=== PATIENT | male | born 1965 | race Caucasian/White ===

== ENCOUNTER 2017-03-02 16:32 | Inpatient (IN) | payer BC ==
[~2017-03-02] VITALS: Ht 185.4 cm; Wt 87.9 kg
--- NOTE | ~2017-03-02 | DS ---
PATIENT'S NAME: SERA MORSE [facility] AGE: 51 Y [address] ROOM: [address] [place], [place] [address] LOCATION: TU ADMIT DATE: 03/02/2017 Discharge Summary DISCHARGE DATE: 03/12/2017 FAMILY PHYSICIAN: Fawn Ca MD ATTENDING PHYSICIAN: Aman Pa DISCHARGE DIAGNOSES: 1. 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 2. Benign prostatic hyperplasia. 3. Seasonal allergies. HOSPITAL COURSE: Please refer to admitting history and physical as dictated by Dr. Pa. Briefly, the patient was admitted to [facility] with left extremity weakness and vertigo. His NIH score was 4 upon admit. He was outside of the tPA treatment window. MRI of the brain showed a large acute infarct without hemorrhage in the left PICA distribution involving the posterior inferior cerebellum. The patient was placed on the stroke order sets. He was given Lipitor 80 mg p.o. daily. He was started on aspirin 81 mg p.o. daily. Teleneurology as well as Dr. Snow were consulted. He was allowed for permissive hypertension. The patient did have significant headache with photophobia and phonophobia. Physical therapy, occupational therapy and speech therapy all followed the patient for restorative cares. The patient was able to swallow regular textures and thin liquids. Dr. Arnold did see the patient for GIRP evaluation. He felt as though he was a good candidate for GIRP. Dr. Snow did recommend a time period of bedrest prior to the patient being up and out of bed. He was transferred out of the ICU on 03/04/2017. He was monitored with serial CAT scans of his head to monitor the ischemic infarct. Tramadol was used for headache. The patient continued to make gradual improvement. He did have noted constipation, Colace and MiraLax were initiated. He did have a bowel movement prior to discharge. Lovenox 40 mg subcu was used for DVT prophylaxis. On 03/12/2017, the patient's vital signs were stable. His left-sided weakness had improved. His headache had improved. Followup CAT scans revealed evolving ischemic infarct with no hemorrhagic transformation. It was felt as though he was stable to transfer to [facility] for further restorative cares. LABORATORY DATA: Sodium 140, potassium 3.9, chloride 108, glucose 107, BUN 18, creatinine 1.0, albumin 4.2, alkaline phosphatase 77, AST 21, ALT 23, phosphorus 2.0, GFR remained greater than 60, mag 2.0, total cholesterol 195, triglycerides 105, HDL 52, LDL 122. Alcohol less than 0.010. CPK 117, CK-MB 0.7. Troponin less than 0.040. WBC 8.1, hematocrit 43.7, hemoglobin 15.3, platelets 294. UA negative except for ketones 150. Urine drug screen negative. RADIOLOGY REPORTS: Chest x-ray, normal chest. CT of the head done on PATIENT'S NAME: SERA MORSE [facility] AGE: 51 Y [address] ROOM: [place] [address] LOCATION: [facility] ADMIT DATE: 03/02/2017 Discharge Summary DISCHARGE DATE: 03/12/2017 FAMILY PHYSICIAN: Fawn Ca MD ATTENDING PHYSICIAN: Aman Pa 03/02/[address] of the head. CTA of the head and neck shows a normal head CTA of neck 50%, smooth narrowing at the base of the right internal carotid, left bifurcation is normal. MRI of the brain shows a large acute infarct without hemorrhage in the left PICA distribution involving the posterior inferior cerebellum. CT of the head done on 03/03/2017 shows evolving ischemic infarct of the left cerebellum hemisphere with no hemorrhagic transformation. CT of the head done on 03/05/2017 shows evolving ischemic infarct at the left cerebellum with no hemorrhagic transformation. DISCHARGE INSTRUCTIONS: The patient will be discharged to [facility] with the [facility] physician to follow. Code status full. Diet regular. Weightbearing as tolerated with assistance. Fall precautions. PT, OT, ST to evaluate and treat as indicated. Oxygen as needed to keep saturations greater than 90%. Rehab potential good. Discharge potential is good. DISCHARGE MEDICATIONS: 1. Aspirin 81 mg p.o. daily. 2. Lipitor 80 mg p.o. daily. 3. Colace 100 mg p.o. twice a day. 4. Hydrocortisone cream topically applied to the left axillary region as directed. 5. Lactinex 1 tablet p.o. daily. 6. Claritin 10 mg p.o. daily. 7. Protonix 40 mg p.o. daily. 8. MiraLax 17 g p.o. twice daily. 9. Flomax 0.4 mg p.o. daily. 10. Tylenol 650 mg p.o. every 6 hours as needed for pain. 11. Dulcolax suppository 10 mg every day as needed for constipation. 12. Milk of magnesia 30 mL p.o. daily p.r.n. constipation. 13. Antivert 25 mg p.o. every 8 hours as needed for vertigo. 14. Tramadol 50 mg p.o. every 4 hours as needed for pain. 15. Bengay to shoulders bilaterally apply 4 times daily as needed for muscle soreness. 16. Abreva topical apply to affected area 5 times daily. Thank you for allowing us to participate in the care of this patient as he has been hospitalized at [facility]. DARLIN FLORES APRN FOR MD ESAU HO/annamaria PATIENT'S NAME: SERA MORSE [facility] AGE: 51 Y [address] ROOM: [place] [address] LOCATION: [facility] ADMIT DATE: 03/02/2017 Discharge Summary DISCHARGE DATE: 03/12/2017 FAMILY PHYSICIAN: Fawn Ca MD ATTENDING PHYSICIAN: Aman Pa /[id number] d: 03/21/17621 t: 03/31/17 1428, DISCHARGE SUMMARY
--- NOTE | ~2017-03-02 | CON ---
PATIENT'S NAME: SERA MORSE [facility] AGE: 51 Y [address] ROOM: [place] [address] LOCATION: GICU ADMIT DATE: 03/02/2017 Consultation DISCHARGE DATE: FAMILY PHYSICIAN: Fawn Ca MD ATTENDING PHYSICIAN: Aman PA REFERRING PHYSICIAN: Bonnie Raymond MD A consult for Dr. Pa. HISTORY OF PRESENT ILLNESS: This 51-year-old gentleman is referred for rehab evaluation. He was admitted on 03/02/2017 with left-sided weakness, vertigo, and felt dizzy while coming back from a fishing trip to [place]. He also noticed that he had left-sided weakness with facial droop and reported intermittently double vision. PAST MEDICAL HISTORY: He has history of increased blood pressure, reflux esophagitis, and benign prostatic hypertrophy. PHYSICAL EXAMINATION: GENERAL: He is, at the present time, alert and oriented x3. VITAL SIGNS: Blood pressure 113/79, temperature 97.9, pulse 76, and respiration rate 15. He is 6 feet 1 inch tall and weighs 93.0 kg. NEUROLOGIC: At this time, he is able to talk, comprehend, and express without difficulty. Cranial nerves 2 through 12 are within normal limits except for probably having some dizziness. He has also slight left facial droop. Tongue and soft palate are moving symmetrical. Voice is clear and not wet. He is able to comprehend and express up to the point without difficulty. His memory is good. He is weaker on the left side. Left upper extremity 3+ to 4- muscle strength, and left lower extremity about 4-. He has good bowel and bladder control so far. MEDICATIONS: His medications are as follows: 1. Morphine sulfate. 2. Flomax. 3. Lactinex. 4. Claritin. 5. NaCl 0.9%. 6. Tylenol. 7. Trandate or labetalol. 8. Zofran. 9. Antivert. PATIENT'S NAME: SERA MORSE [facility] AGE: 51 Y [address] ROOM: [place] [address] LOCATION: GICU ADMIT DATE: 03/02/2017 Consultation DISCHARGE DATE: FAMILY PHYSICIAN: Fawn Ca MD ATTENDING PHYSICIAN: Aman PA 10. Valium. 11. Lipitor. 12. Aspirin. ASSESSMENT AND PLAN: We will start him on PT, OT, and speech, please see the orders. At the present time, I feel that this gentleman is a good candidate for intensive rehabilitation. When he comes out of intensive unit, I will take him for about 3 to 4 weeks of intensive rehab, aiming to discharge home at modified independence. All the above was explained to him. He verbalized understanding, so did his , and agreement with plan of care. GÉNESIS OBRIEN MD WMS/modl /[id number] d: 03/03/17 1343 t: 03/04/17 0739, CONSULTATION REPORT
--- NOTE | ~2017-03-02 | CON ---
PATIENT'S NAME: SERA MORSE [facility] AGE: 51 Y [address] ROOM: [address] [place] [id number] LOCATION: [facility] ADMIT DATE: 03/02/2017 Consultation DISCHARGE DATE: FAMILY PHYSICIAN: Fawn Ca MD ATTENDING PHYSICIAN: Aman CRAWFORD DATE OF CONSULTATION: 03/03/2017 REFERRING PHYSICIAN: Bonnie Raymond MD SEEN AT: The patient was seen on neurologic consultation on 03/03/2017 at 09:00 p.m. HISTORY OF PRESENT ILLNESS: Mr. Morse is a 51-year-old male patient who states that in general he is healthy and has never had a stroke before. He denies coronary artery disease, but has had a workup in the past for chest pain. The patient presented to our hospital on 03/02/2017, but was out of the window to receive tPA. He clearly presented with stroke-like symptoms associated with left facial numbness, discoordination of his left arm and perhaps some subtle weakness of the left arm though that is unclear, some gait imbalance, general lightheadedness, dizziness and nauseousness. Initially on our CAT scan here at the hospital upon admission, he did not have any evidence of an evolving stroke. However, he continued to have the stroke-like symptoms. An MRI and follow up CAT scans now show an evolving stroke into the left inferior portion of the cerebellar hemisphere. Basically during the course of the day, the patient has still had some symptoms suggestive of the evolving stroke with numbness of the left face, but without any dysarthric speech, continued headache, fatigue and discoordination of the left arm consistent more with dysmetria. In an effort to ambulate the patient today, he experienced dizziness and lightheadedness to the point where he had to sit down back in the bed and even a change in position from sitting up to standing up did induce more of a headache and extreme lightheadedness. Currently, the patient is a bit somnolent, but answers all questions appropriately. Complaining about some fullness and a headache and a subtle pain into the base of the skull. Currently, he has been placed on aspirin 81 mg daily post stroke as well as Lipitor 80 mg daily. Today, he had an echocardiogram which is pending on the results of this test. 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 He did come back from a fishing trip in [place] about a day prior. Upon prior medical history, a history of fairly benign high blood pressure and history of benign prostatic hypertrophy. Denies any history of stroke, heart attack, migraine headaches. He does have a history of some mild lightheadedness with head change position. PATIENT'S NAME: SERA MORSE [facility] AGE: 51 Y [address] ROOM: [address] [place] [id number] LOCATION: [facility] ADMIT DATE: 03/02/2017 Consultation DISCHARGE DATE: FAMILY PHYSICIAN: Fawn Ca MD ATTENDING PHYSICIAN: Aman CRAWFORD CURRENT MEDICATIONS IN HOSPITAL: Include: 1. Tamsulosin 0.4 mg p.o. daily. 2. Lactobacillus 1 tablet p.o. daily. 3. Loratadine 10 mg p.o. daily. 4. Meclizine 25 mg q.8 hours p.r.n. dizziness. 5. Diazepam 5 mg 3 times a day p.r.n. dizziness. 6. Atorvastatin 80 mg p.o. daily. 7. Aspirin 81 mg p.o. daily. 8. Both aspirin and Lipitor, please note have been started here in this hospital. SOCIAL HISTORY: He is . No history of smoking or alcohol dependence. History is noncontributory. REVIEW OF SYSTEMS: The patient neurologically presents with left arm discoordination, some numbness into his left hemibody, headache, neck pain as well as numbness of his left face. He does not have any dysarthric speech. He does not have any problems with word finding. He appears to be uncomfortable, averse to light. He complains about some mild diplopia on left gaze. GI history of some mild gastroesophageal reflux. On genitourinary has a history of benign prostatic hypertrophy. The rest of a 10-point review of systems is within normal limits. PHYSICAL EXAMINATION: GENERAL: This is a 51-year-old male patient who looks to be uncomfortable. NEUROLOGIC: He is complaining about a mild bifrontal headache and some left base of the skull head discomfort. He has full range of motion of his neck on flexion and extension. Bringing his head back does induce some mild dizziness. I did not appreciate any facial droop. He has some subjective numbness of his left hemiface, but smile is symmetric. His power in his right upper and lower extremity is normal. His left upper extremity, he does not elevate this arm. It is difficult to say if this is due to weakness as he does have dysmetria on [id number] opposition. His left lower extremity appears to have normal power. There is otherwise normal sensation to light touch and sharp touch. The patient was not ambulated. IMPRESSION: This patient is a young male 51-year-old. His really only risk factor for stroke that we could see is likely some mild hypertension. However, he does not present here with his blood pressure being too high. In fact, his blood pressure is around 110 systolic presently. I would favor keeping the patient on IV fluids for intravascular repletion. We have to be cognizant to the fact PATIENT'S NAME: SERA MORSE [facility] AGE: 51 Y [address] ROOM: [place] [address] LOCATION: [facility] ADMIT DATE: 03/02/2017 Consultation DISCHARGE DATE: FAMILY PHYSICIAN: Fawn Ca MD ATTENDING PHYSICIAN: Aman CRAWFORD that this is a young man with very little atrophy of the brain. Thus, a cerebellar stroke is quite dangerous and can even evolve over the course of the next 48 to 72 hours. Therefore, aggressive physical therapy should be completely avoided. He should slowly regain the ability to do physical therapy easily with time, but we have to be careful just to have the patient sit up at bedside and do some basic occupational therapy at this point in time. Favor essentially bedrest with this patient. Etiology for his stroke is unclear. He does have an occluded pica which is a small branch off the vertebral and even some narrowing of the right pica, but this pica on the right is not completely occluded. It is possibility that in pica strokes, there was an injury into the vertebral artery on the left though it has been read as "normal" on the CT angiogram. I would not necessarily say that the left vertebral would be normal in this case as the patient has some likely extension of his stroke even into the medulla probably from the perfusion off the pica coming out of the left vertebral. I say this because of his symptoms of numbness of his left face would clearly be related to a Wallenberg type of presentation of a small infarct even into the lower medulla. The lower medulla does not have prolongation of diffusion. Certainly, this could even evolve over the course of the next few days. Thus, I stressed again that we have to be careful to avoid any aggressive physical therapy in this patient. Generally, these types of strokes should do well, but often caution is advised as we have to make sure that there is no more advancement of his cerebellar stroke that could cause something of the fourth ventricle. In fact, we should repeat the CAT scan probably within the next 24-48 hours to see how the evolvement of the stroke is taking place. 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 For his treatment for post stroke, we have added Lipitor 80 mg with the hopes that this could stabilize the endothelium as well as the anti-platelet agent aspirin. Continue to follow closely with the hospitalist service on Mr. Morse's progress. MD STEPHEN ALONSO/annamaria /[id number] d: 03/04/170 t: 03/13/17 1304, CONSULTATION REPORT
--- NOTE | ~2017-03-02 | CON ---
PATIENT'S NAME: SERA MORSE [facility] AGE: 51 Y [address] ROOM: [place] [address] LOCATION: [facility] ADMIT DATE: 03/02/2017 Consultation DISCHARGE DATE: FAMILY PHYSICIAN: Fawn Ca MD ATTENDING PHYSICIAN: Aman CRAWFORD CHIEF COMPLAINT: Well stroke. HISTORY OF PRESENT ILLNESS: This is a 51-year-old man, who came into the hospital for acute onset difficulty moving the left arm and balance as well as some nausea and vomiting. The patient's symptoms have been going on since 10 a.m., he was coming back from a fishing trip that this happened and these symptoms seemed to have progressed right before the patient came into the hospital. He started having numbness on the left side of his body. This has not happened before. The symptoms have not improved. He does not have a history of atrial fibrillation and he does not take aspirin. PHYSICAL EXAMINATION: On exam: 1A: Level of consciousness 0. 1B: Month and age 0. 1C: Open eyes, closed, and hands 0. 1. Best gaze 0. 2. Visual fairchild 0. 3. Facial palsy, 0. 5A. Motor left arm 0. 5B. Motor right arm 0. 6A: Motor left leg 0. 6B: Motor right leg 0. 1. Ataxia. 2. Sensory 1. 3. Western Language 0. 4. Dysarthria 0. 5. Extension and attention 0. The patient had an NIH of 3. CT of the head, no acute findings. ASSESSMENT AND PLAN: Stroke. The patient has sensory loss of the left arm and leg and sensory ataxia, most likely has a subcortical stroke in the right hemisphere possibly PATIENT'S NAME: SERA MORSE [facility] AGE: 51 Y [address] ROOM: [place] [address] LOCATION: [facility] ADMIT DATE: 03/02/2017 Consultation DISCHARGE DATE: FAMILY PHYSICIAN: Fawn Ca MD ATTENDING PHYSICIAN: Aman CRAWFORD thalamic stroke. There are no cortical signs in the exam. The patient is not a tPA candidate as he is out of the window. The patient is not a neuro IR candidate because it is out of the window and low in age, minimal symptoms. At this time, we will recommend the following, admit stroke telemetry, head of bed flat, IV fluids, aspirin 325, dysphagia screen, prophylactic telemetry. Consult to inhouse neurologist and then further stroke workup per our inhouse neurologist and Internal Medicine team. Discussed with the ED physician. Please call for questions. MD JIMENEZ/annamaria /[id number] d: t: 03/02/17 2309, CONSULTATION REPORT
--- NOTE | ~2017-03-02 | ECHO ---
Transthoracic Echocardiography Report (TTE) Demographics Patient Name SERA MORSE Date of Study 03/03/2017 Patient Number [id number] Visit Number [id number] Date of 1965 Room Number G6206 Accession Number [id number] Gender Male Age 51 year(s) Referring Roby Billings MD Returns Clerk Deshaun Rajput RVT, Physician RDCS Physician Interpreting Tanya Ramos Lieutenant Fire Fighter Physician MD Supervising Ordering Physician Ember Newton MD/P Nurse Stress Machine Setter Conclusions Contractility Score Summary Normal Left Ventricular contractility was noted. Summary The estimated left ventricular ejection fraction is 60-65% with normal wall thickness and WM. The left ventricle is normal in size . Diastolic assessment reveals normal relaxation. There is no evidence of patent foramen ovale or atrial septal defect by color Doppler. Bubble study was done, there is no evidence for a PFO or ASD. Procedure Type of Study TTE procedure:2D Echocardiogram, Echo with Contrast. Procedure Date Date: 03/03/2017 Start: 11:16 AM Study Location: Inpatient Portable Technical Quality: Good visualization Indications:CVA. Appropriate Use Criteria: 8 Patient Status: Routine Contrast Medium: Bubble Study. Rhythm: NSR HR: 64 bpm BP: 113/79 mmHg M-Mode/2D Measurements LV Diastolic Dimension: 4.96 cm LV Systolic Dimension: 3.56 cm LV Septum Diastolic: 0.94 cm LV PW Diastolic: 0.8 cm AO Root Dimension: 2.7 cm Cardiac Output: 4.3 l/min AV Cusp Separation: 2.4 cm RV Diastolic Dimension: 2.91 cm LA volume: 35 ml LVOT: 2.2 cm RV Base: 3.65 cm LVOT VTI: 17.7 cm RV Mid: 2.59 cm LV Stroke volume: 67.25 ml TAPSE: 2.11 cm TDI-S': 10.2 cm/s Doppler Measurements AV Peak Velocity: 1.14 m/s MV Peak E-Wave: 0.78 m/s AV Peak Gradient: 5.2 mmHg MV Peak A-Wave: 0.51 m/s AV Mean Gradient: 3 mmHg MV E/A Ratio: 1.53 LVOT Peak Velocity: 0.84 m/s MV P1/2t: 67 msec TR Gradient:15.84 mmHg PV Peak Velocity: 0.93 m/s Estimated RAP:5 mmHg PV Peak Gradient: 3.43 mmHg Estimated RVSP: 21 mmHg Estimated PASP: 20.84 mmHg E' Septal Velocity: 0.08 m/s A' Septal Velocity: 0.1 m/s E' Lateral Velocity: 0.13 m/s A' Lateral Velocity: 0.11 m/s Findings Left Ventricle Normal left ventricle size and function. Right Ventricle Normal right ventricle structure and function. Left Atrium Normal left atrial size. There is no evidence of patent foramen ovale or atrial septal defect by color Doppler. Bubble study was done, there is no evidence for a PFO or ASD. Right Atrium Normal right atrial size. IVC measures 1.47 cm with inspiratory collapse. Mitral Valve Normal mitral valve structure and function. Aortic Valve Normal aortic valve structure and function. Tricuspid Valve Normal tricuspid valve structure and function. Trivial tricuspid regurgitation by color Doppler. Pulmonic Valve Normal pulmonic valve structure and function. Trivial pulmonic valve regurgitation by color Doppler. Pericardial Effusion No evidence of pericardial effusion. Miscellaneous Visualized portions of the aortic root and ascending aorta appear normal in size. Pleural Effusion No evidence of pleural effusion. Contractility Score LV regional wall motion:(0-Non visualized 1-Normal 2-Hypokinesis 3-Akinesis 4-Dyskinesis 5-Aneurysm) Signature dtt: Rachel Martínez dtd: 03/03/17 1116 Physician Self Edit
--- NOTE | ~2017-03-02 | ER ---
PATIENT'S NAME: [facility] AGE: 51 Y [address] ROOM: [place] [address] LOCATION: [facility] ADMIT DATE: 03/02/2017 ER/Outpatient Report DISCHARGE DATE: FAMILY PHYSICIAN: Fawn Ca MD ATTENDING PHYSICIAN: Aman PA Time of Arrival: 1627. Time Seen: 1627. IDENTIFICATION: 51-year-old male. CHIEF COMPLAINT: Possible stroke. HISTORY OF PRESENT ILLNESS: The patient is a 51-year-old male, who was returning home from a fishing trip with some friends. Approximately 10:00 a.m. this morning, he developed some dizziness, blurred vision, nausea, vomiting, and double vision. Then approximately 1.5 hours prior to arrival, he was complaining of some numbness in his left arm, left face, felt like he had been to the dentist, difficulty walking, and difficulty controlling his left arm. He said he could not itch his ear. He is a little bit confused at times when I am asking him his history. History was confirmed with the person that was with him as well as his . PAST MEDICAL HISTORY: ALLERGIES: NO KNOWN DRUG ALLERGIES. CURRENT MEDICATIONS: 1. Flexeril 5 mg. 2. Lactobacillus. 3. Ibuprofen. 4. Loratadine 10 mg. 5. Biotin x4. 6. Probiotic. 7. Tamsulosin 0.4 mg daily. 8. Pseudoephedrine p.r.n. 9. Acetic acid ear drops. MEDICAL PROBLEMS: Traumatic brain injury, BPH. PATIENT'S NAME: [facility] AGE: 51 Y [address] ROOM: [place] [address] LOCATION: [facility] ADMIT DATE: 03/02/2017 ER/Outpatient Report DISCHARGE DATE: FAMILY PHYSICIAN: Fawn Ca MD ATTENDING PHYSICIAN: Aman PA PRIOR SURGERIES: Right ankle surgery. SOCIAL HISTORY: The patient is . Lives here in [place]. Tobacco use, denies. Alcohol use, 2-3 drinks per week. Drug use, denies. FAMILY HISTORY: No family history of coronary artery disease or stroke. REVIEW OF SYSTEMS: All systems reviewed and negative other than what is noted in the HPI. PHYSICAL EXAMINATION: VITAL SIGNS: Blood pressure 149/71, pulse 81, respirations 20, temperature 98, and saturations 96%. GENERAL: This is a 51-year-old male, in obvious distress. HEENT: Head: Normocephalic, atraumatic. Ears: TMs translucent to both ears. Eyes: Pupils equal and reactive to light and accommodation. Extraocular movements intact. Nose: Mucosa pink. No lesions. Mouth: No lesions. Pharynx benign. NECK: Supple. No lymphadenopathy. No thyromegaly. No JVD. No carotid bruits. LUNGS: Clear to auscultation. Breath sounds are equal. No rhonchi, wheezes, or rales. HEART: Regular rate and rhythm. No murmur, rub, or gallop. ABDOMEN: Bowel sounds present. Soft, nondistended. No hepatosplenomegaly. No palpable masses. Nontender. SKIN: Dol[place], warm, and dry. No lesions or rashes noted. NEUROLOGIC: The patient is alert and oriented to person, place, and time, but occasionally he wanders off and appears to be confused. Cranial nerves 2 through 12 grossly intact. Motor strength 5/5 right upper extremity, 4/5 left upper extremity. 5/5 both lower extremities. No lower extremity edema. Sensation is diminished to light touch in the left face and the left arm. NIH stroke scale score is 6 at the time of arrival. The patient has significant limb ataxia in the left upper extremity and left lower extremity. LABORATORY DATA: Alcohol level less than 0.010. Cardiac enzymes negative x1. CBC: INR normal. UA 150 mg/dL ketones. The patient's Accu-Chek was 117. Renal panel unremarkable. Head CT negative per Dr. Agrawal, radiologist. CBC is normal. EKG normal sinus rhythm at 88 beats per minute. No change compared to January 2015. Tele neurology consult was obtained. IMPRESSION AND PLAN: PATIENT'S NAME: [facility] AGE: 51 Y [address] ROOM: [id number] [place], [place] [address] LOCATION: [facility] ADMIT DATE: 03/02/2017 ER/Outpatient Report DISCHARGE DATE: FAMILY PHYSICIAN: Fawn Ca MD ATTENDING PHYSICIAN: Aman PA Acute cerebrovascular accident. Negative head CT out of the window for tPA. The patient was given aspirin 81 mg x4. The patient will be admitted per hospitalist. Dr. Pa evaluated the patient in the emergency room. All questions were answered with the patient and his family and 30 minutes of critical care was provided with this patient. MD MARIANELA VIDES/annamaria /[id number] d: 03/03/17 0010 t: 03/06/17 0932, OUTPATIENT REPORT
--- NOTE | ~2017-03-02 | HP ---
PATIENT'S NAME: [facility] AGE: 51 Y [address] ROOM: [place] [address] LOCATION: [facility] ADMIT DATE: 03/02/2017 History & Physical DISCHARGE DATE: FAMILY PHYSICIAN: Fawn Ca MD ATTENDING PHYSICIAN: Aman CRAWFORD DATE OF SERVICE: CHIEF COMPLAINT: Left-sided weakness and vertigo. HISTORY OF PRESENT ILLNESS: The patient is a 51-year-old with no past medical history, who presents here with left extremity weakness and vertigo. The patient went to [facility] for fishing and while returning back to [place], he felt dizzy while driving. 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 On route, he also felt left-sided weakness and dizziness. Also reports that his face now appears left side face. Family thought that he might have migraine. He reports that he could not open his eyes as that created sense of vertigo, which accompanied by nausea and vomiting. Symptoms started around 10:00 a.m. Since these symptoms did not improve, family brought him to our emergency department for further evaluation. On initial evaluation, the patient was noted to have left-sided weakness, truncal instability, and dysmetria of left side. Neuro tele was consulted for possible stroke, however, the patient was outside tPA treatment and tPA was not given. The patient denies chest pain, shortness of breath, fever, abdominal pain, diarrhea, constipation, and fall. The patient also reports of intermittent diplopia. MEDICAL HISTORY: BPH. SURGICAL HISTORY: Cholecystectomy. FAMILY HISTORY: Dad has a history of coronary artery disease. Mother has a history of stroke. SOCIAL HISTORY: The patient works for the . Denies smoking and seldomly drinks. MEDICATIONS: Currently being reconciled. REVIEW OF SYSTEMS: All systems have been reviewed and are negative except for what mentioned in PATIENT'S NAME: [facility] AGE: 51 Y [address] ROOM: [place] [address] LOCATION: [facility] ADMIT DATE: 03/02/2017 History & Physical DISCHARGE DATE: FAMILY PHYSICIAN: Fawn Ca MD ATTENDING PHYSICIAN: Aman CRAWFORD the HPI. PHYSICAL EXAMINATION: VITAL SIGNS: Afebrile, blood pressure 147/102, heart rate 68, respiratory rate 14, saturating 96% on room air. GENERAL APPEARANCE: The patient lying on the bed in no acute distress. HEAD: Normocephalic, atraumatic. EYE: Extraocular muscle intact. EAR: No ear discharge. NOSE: No nasal discharge. MOUTH: Moist oral mucosa. CHEST: Clear to auscultation bilaterally. HEART: Regular rate rhythm. No murmurs or gallops. ABDOMEN: Soft, nontender, and nondistended. Bowel sounds present. SKIN: Warm to touch. GEOLOGICAL AIDE: The patient is alert and oriented x3. Left lower extremity and left upper extremity strength 4/5. Positive dysdiadochokinesia, positive dysmetria on left upper extremity, truncal instability noted. LABORATORY DATA: Troponin less than 0.04. CBC: White blood cell count of 8, hemoglobin of 15, platelets of 294, BUN of 18, creatinine of 1. Sodium of 140, potassium of 3.9, and glucose of 107. PT 25. INR 0.95. CT head shows normal CT scan of the head. EKG; normal sinus rhythm. ASSESSMENT AND PLAN: Cerebrovascular accident: The patient is a 51-year-old gentleman with no significant past medical history, who presents with possible posterior stroke. The patient is presenting with truncal instability, nystagmus with nausea, vomiting, left lower extremity dysmetria, hemiataxia, weakness, and decreased sensation of left face. 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 We will start the patient on aspirin. His NIH score was 4 on admission. The patient is outside tPA treatment. We will start the patient on high-dose Lipitor 80 mg, aspirin. We will keep permissive hypertension for 24 hours to treat systolic blood pressure greater than 20 and diastolic blood pressure greater than 110. We will also acquire MRA of head, CTA neck and brain, and echocardiogram. To acquire Physical Therapy and Occupational therapy. To continue consult neuro tele. To have serial neuro exam. Bedside swallow eval and take oral medication. I have personally reviewed the patient's medical record including but not limited to blood work and radiology report. Total time spent with patient is PATIENT'S NAME: [facility] AGE: 51 Y [address] ROOM: [place] [id number] LOCATION: [facility] ADMIT DATE: 03/02/2017 History & Physical DISCHARGE DATE: FAMILY PHYSICIAN: Fawn Ca MD ATTENDING PHYSICIAN: Aman CRAWFORD greater than 60 minutes, more than 50% of the time is spent with direct patient and family consultation. Long discussion was made about the patient's presentation, finding, and plan of care. Several questions were raised by family member, especially . All questions were answered to the family's satisfaction. Case rule was reviewed with Dr. Ash, the emergency physician. We will admit the patient for CVA and continue with current treatment. Code status on admission, full code. TY PARKER MD AD/modl /[id number] D: T: 840 HISTORY & PHYSICAL
[~2017-03-02 16:32] MED LIST: ADVIL200 M2 PO; CLARINEX5 MG PO
[2017-03-02 16:43] LABS: BASOPHIL % 0.1 %; HEMATOCRIT 43.7 % (37.0-53.0); HEMOGLOBIN 15.3 g/dL (12.0-17.0); IMMATURE GRANULOCYTE % 0.2 %; LYMPHOCYTE % 12.4 %; MCH 31.2 pg (27.0-34.0); MONOCYTE # 0.3 K/uL (0.0-1.0); MONOCYTE % 3.4 %; MPV 9.5 fl (9.4-12.4); NEUTROPHIL # (ANC) 6.8 K/uL (1.4-9.0); NEUTROPHIL % 83.9 %; NRBC % 0 /100WBC (0-0.00); PLATELET COUNT 294 K/uL (150-450); RBC 4.91 M/uL (4.00-6.00); RDW-CV 11.9 % (11.9-14.6); WBC 8.1 K/uL (4.0-11.0)
[2017-03-02 16:51] LABS: INR - (THERAPEUTIC) 0.95 (0.92-1.07); PTT 25 SECONDS (25-32)
[2017-03-02 17:02] LABS: CPK 117 IU/L (35-332)
[2017-03-02 17:05] LABS: ALBUMIN 4.2 gm/dL (3.5-5.0); ANION GAP 16.9 (10.0-19.0); BLOOD UREA NITROGEN 18 mg/dL (6-24); CALCIUM 8.7 mg/dL (8.5-10.5); CHLORIDE 108 mMol/L (96-110); CO2 19 mMol/L (22-32); ESTIMATED GFR (MDRD EQUATION) > 60; POTASSIUM 3.9 mMol/L (3.7-5.1); SODIUM 140 mMol/L (135-145)
[2017-03-02 18:28] LABS: BILIRUBIN URINE NEGATIVE (NEGATIVE); BLOOD URINE NEGATIVE /UL (NEGATIVE); GLUCOSE URINE NEGATIVE (NEGATIVE); KETONE URINE 150 mg/dL (NEGATIVE); LEUKOCYTES URINE NEGATIVE /UL (NEGATIVE); NITRITE URINE NEGATIVE (NEGATIVE); PROTEIN URINE NEGATIVE (NEGATIVE); UROBILINOGEN URINE NORMAL (NORMAL)
[2017-03-02 18:30] LABS: COLOR URINE YELLOW (YELLOW); TURBIDITY URINE CLEAR (CLEAR)
[2017-03-02 18:48] LABS: BARBITURATE NEGATIVE (NEGATIVE); COCAINE NEGATIVE (NEGATIVE); OPIATES NEGATIVE (NEGATIVE)
[2017-03-02 18:49] LABS: AMPHETAMINE NEGATIVE (NEGATIVE)
[2017-03-02] MEDS ORDERED: CYCLOBENZAPRINE5 MG PO (20:18)
[2017-03-02] MEDS ORDERED: FLOMAX0.4 MG PO (20:19)
[2017-03-02] MEDS ORDERED: LACTINEX (FLORA1 TAB PO (20:19)
[2017-03-02] MEDS ORDERED: CLARITIN10 MG PO (20:19)
[2017-03-02] MEDS ORDERED: SUDAFED 12-HOU120 MG PO (20:20)
--- NOTE | 2017-03-03 05:34 | NUR ---
Significant event: patient admitted to ICU today with left side numbness and weakness, back pain, headache, and mild confusion. CT/CTA/MRI completed. NIHSS of 6. Currently alert and oriented x3. Vomited x1. Zofran and meclizine given. Neurological status improved throughout shift. Follow up: CT @ 0900
--- NOTE | 2017-03-03 10:06 | NUR ---
NUTRITION CONSULT RECEIVED PER STROKE PROTOCOL. NPO AT THIS TIME. TO HAVE CT THIS MORNING. WILL ATTEMPT TO COMPLETE DIET EDUCATION PRIOR TO DISCHARGE IF APPROPRIATE.
--- NOTE | 2017-03-03 16:27 | NUR ---
Significant Events: Patient has left sided weakness, his leg is stronger than his arm, difficulty with motor control. Does have a slight facial droop. PT and OT worked with patient, does become dizzy and increased weakness with big movements. BP does not fluctuate when sitting or standing. Oriented x3, tylenol and morphine given for headache this shift. Remains in SR, SBP stable. Continues on room air, lungs clear throughout. Voids per urinal with some difficulty. Cardiac diet, refused lunch. CT completed this AM Follow up: Continue
--- NOTE | 2017-03-04 06:26 | NUR ---
patient is sleepy but easily awake will follow simple commands weak movement of lt side of the body,double vision to the lt fiels,occasional headach the improve after po tylanol,difficulties in start of voiding,no n/a, follow up:continue to monitor patient's hemodynamic and neuro status closely,no aggresive physical therapy as ordered by dr moreno.
--- NOTE | 2017-03-04 11:18 | NUR ---
Introduced self and role of care management to pt and . They live in [place] and he works for the and his office is located in [place] and he leaves on Friday and comes back on Friday. She works for the city of [place]. There house is all one level with only 3 steps in and walk in shower. is just wanting to make sure the [place] will get [place]. I asked if they want [place] transferred to the [place] hospital and they do not they have BC[place]. At this time he is having limited therapy and will follow and see what pt will need on dc. I did discuss acute rehab, skilled, hhc, and outpt therapy. WIll continue to follow.
--- NOTE | 2017-03-04 15:48 | NUR ---
PATIENT IS AAOX3. LEFT ARM AND LEG HAVE WEAKNESS AND SENSATION IMPAIRMENT. SLIGHT LEFT FACIAL DROOP. IMPAIRED SENSATION TO FACE. C/O DOUBLE VISION AT TIMES WITH LEFT EYE. SENSATIVE TO LIGHT. SBP 120-130'S. CLEAR LUNG SOUNDS ON RA ACTIVE BS. VOIDS PER URINAL. APPETITE IMPROVED OVER LUNCH. IV L) WRIST RUNNING. TOOK OVER CARES AT 1100 AND TRANSFERED PATIENT TO NTU AT 1530 TO ROOM 6220. GLASSES AND PERSONAL ITEMS WENT WITH PATIENT. PLANS FOR CT TOMORROW. LAST ULTRAM AT 1220.
--- NOTE | 2017-03-05 03:31 | NUR ---
Significant Event: The patient is Alert and Oriented x3. Dull sensation to the Left face and arm. Moves all extremities spontaneously and to command. Left extremities are slightly weaker than his right. NIHSS 7. VSS. On room air. Pupils are Equal and Reactive. Denies any blurred or double vision. Complaints of a headache gave him Tylenol at 0315. PIV to the Left wrist infusing NS at 100ml/hr. Voids per the urinal. Bedrest, but may get up to the commode and sit at the side of the bed for short periods of time. Up with 2 Assist Pivot. Follow up:
--- NOTE | 2017-03-05 13:58 | NUR ---
[facility] called and she states they can take pt when ready if he is wanting to come here. I explained I would thinks so but he is not feeling the best today so I will touch base with them tomorrow or later today. She will work on the precert when ready. I explained at this time doing limited therapy.
--- NOTE | 2017-03-05 18:46 | NUR ---
Significant Event:Patient is alert and oriented times three. PERRLA. Sensitive to light and loud sounds. NIH-SS 8- Facial droop, left upper and lower extremity weakness, ataxia, and dull sensation to left side of body. Lungs clear throughout. VSS on room air. NSR on telemetry. Bowel sounds active, no bm this shift. Patient voids per the urinal. Bilateral calf pumps on. Complaints of headache this shift relieved by ultram. Antivert given prior to therapies to help decrease dizziness. Patient takes medications whole without difficulty. Regular diet. Peripheral IV saline locked this shift. Patient may start standing tomorrow per activity order from Dr. Snow. Follow up:
--- NOTE | 2017-03-06 04:09 | NUR ---
Significant Event:Patient alert and ox3. repostions self in bed. Left side weakness. Able to move with difficulty. Dull sensation to left side. Is light and sound sensative. NIHSS 7. C/o headache with ultram at 0306. Voids per urinal. PIV saline locked. Does get dizzy and increased headache with movement. Follow up:attempt to increase activity slowly.
--- NOTE | 2017-03-06 08:36 | NUR ---
PT SCREENED D/T LOS. EST NEEDS: 2739-7200 KCALS, 93-112 GM PROTEIN, 1 ML/KCAL FLUIDS. PT EATING 75%. BASED ON CURRENT DATA, NO NUTRITION-RELATED DX IDENTIFIED. REC CHANGING DIET TO CARDIAC D/T CVA. PT TO GO TO [facility]. WILL ASSIST NEEDED.
--- NOTE | 2017-03-06 11:39 | NUR ---
I did stop to see pt and he is doing some better but not the best morning. I did discuss the next step when that time comes and he is ready for acute inpatient rehab. I explained we can do his inpatient intensive therapy anywhere and can provide it here, [facility] in [facility], etc. HE thinks it would be best to stay here if we are able to meet his needs and thinks it would be better for his as well. I told him he can talk it over with his but will plan on staying here unless something changes. He did thank me for the visit. WIll continue to follow.
--- NOTE | 2017-03-06 11:42 | NUR ---
I did [facility] And she will work on the precert when pt is ready.
--- NOTE | 2017-03-06 15:38 | NUR ---
Significant Event:Patient is alert and oriented times three. PERRLA. Dull sensation noted to the left side. NIH-SS 7 this shift. Left upper extremity effort, left lower extremity drift. facial droop, ataxia, and dull sensation. Moves extremities spontaneously and follows commands. Blurred vision at intermittent times. Lungs clear throughout. VSS on room air. NSR on telemetry. Bowel sounds active. Patient voids per the urinal. Calf pumps in place. Ultram given for headache with relief noted. Antivert given for dizziness. Patient takes medications whole with water. Peripheral IV has NS infusing at 100ml/hr. Regular diet. Follow up:
--- NOTE | 2017-03-06 16:18 | NUR ---
I spoke with Luiza and wants to look into options of Val and here. I did call and left a vm and faxed a referral to them. WIll continue to follow.
--- NOTE | 2017-03-07 03:39 | NUR ---
Significant Event: Patient is alert and oriented x 3. C/O headache at bedtime with relief from Ultram. Also woke up with a headache on 3rd assessment with Ultram given again. PERRL. C/O numbness to left side of face but feels pressure. Dull sensation to left extremities. NIHSS-5. Ataxia to left extremities--improving to left leg. Left upper extremity effort against gravity. Moves extremities spontaneously and to command. Pleasant and cooperative with cares. Keep lights down in room and no loud noises. Denies blurred or double vision this shift. VSS. Afebrile. On room air. Lungs clear throughout. NSR. No edema. Bowel sounds active. Last BM 03/03--thinks another cup of coffee will help but Dr. Snow did write for Colace TID. Voids per urinal. SCDs in place. Bedrest but Dr. Snow did write in his progress note to dangle at bedside today. Antivert to be given prior to PT/OT working with patient. IV infusing NS with no complications. Regular diet. Follow up: NIHSS, activity, [facility] when ready
--- NOTE | 2017-03-07 11:50 | NUR ---
Supportive visit with pt today. I discussed options again and is looking at [facility] as well as an option. He states they just want to have the best and still looking at both but thinking more [facility]. He has a daughter that lives in [place] and is a nurse there and he plans on being 100% when he is done with rehab. I explained I will call his and talk with her. I tried x2 and unable to leave a vm. I did talk with Rema and faxed information. She states they will be out on Friday. I will keep trying to get . I will also update Elizabeth.
--- NOTE | 2017-03-07 12:23 | NUR ---
I did speak with Jumana via the phone and discussed dc plans. THey had a good friend that went to [facility] and he is like 99% she states if it was a short stay they would stay here but they want [facility]. Her first choice is the [facility] but will not turn a bed down in [place]. I told her I have a personal computer specialist Shaunna I am working with so I can follow up with most of this. I did tell her they were coming out on Friday so they can also meet with her and Dakota. I told her that I will have Rema send her the virtual link to her email of [email or web address] was a little concerned about the ambulance being paid for because we have a stroke unit here. I told her I can not guarantee and we can do a medical necessity form but most of the time BCBS are good to work with. She said she could transport him and explained I really don't know about this and the safety of this and we can discuss that with md on down the road. WIll continue to follow.
--- NOTE | 2017-03-07 15:12 | NUR ---
Significant Event: Patient is A&O x3. Follows commands. L) side is weaker than the R) side and more so in the L) arm. Numbness to the L) side but more so on the upper half of his body. Pupils equal & brisk. When dangling at bedside he is unable to keep himself setting up. He has no control of his head or trunk and can not tell that he is falling. NIHSS = 6. Did give Antivert before therapies whiched helped, no dizziness complaints today. VSS. Complains of a dull headache in the R) back side of his head. Gave Tylenol @ 0655 & Tramadol @ 0839 with some relief noted. IV to L) wrist infusing. Refused morning colace but did take the afternoon dose. Voids per urinal. Bedrest but may sit at bedside with assistance and may go to the commode. Does not like loud noise or light. Cooperative with cares. Follow up: Monitor neuro, [facility]IR[facility] in the future.
--- NOTE | 2017-03-08 02:20 | NUR ---
Significant Event:Patient alert and ox3. Bedrest with BSC privileges. Left side weakness and dull sensation. Able to move left leg and arm with difficulty. NIHSS 7. Sensative to both light and sound. C/o headache to right occipital and above both eyes, ultram given x1 at 1841. PIV running NS at 100ml/hr. Follow up:Monitor for pain/LIU.
--- NOTE | 2017-03-08 17:48 | NUR ---
Significant Event: PT ALERT AND ORIENTED X3. PERRLA. L)SIDE REMAINS WEAK/DULL SENSATION. MOVES L)ARM/LEG WITH DIFFICULTY. BEDREST; MAY BE UP TO COMMODE. REPOSITIONS SELF IN BED. VITAL SIGNS STABLE; ON ROOM AIR. HAS COMPLAINED OF A R)SIDE HEADACHE/BEHIND EYES. PRN TYLENOL AND ULTRAM GIVEN WITH RELIEF. VOIDS PER URINAL, WITH 'S HELP. PRN ANTIVERT GIVEN X1 BEFORE PT WORKED WITH THERAPIES THIS AM. IV TO L)WRIST; MAY BE SALINE LOCKED AFTER CURRENT BAG IS FINISHED. NUMEROUS FAMILY HAS BEEN AT BEDSIDE ALL SHIFT. PT IS VERY SENSITIVE TO LIGHT/SOUND. LIKES TO KEEP THE ROOM DARK. Follow up: CONTINUE TO MONITOR
--- NOTE | 2017-03-09 05:15 | NUR ---
Significant Event: Patient is alert and oriented x 3. C/O headache back of head with relief from Ultram. PERRLA. C/O numbness/dull sensation to left side -feels pressure. NIHSS-7. Ataxia to left extremities. Left upper extremity effort against gravity, left leg drift. Moves extremities spontaneously and to command. Pleasant and cooperative with cares. Keep lights down in room and no loud noises. Denies blurred or double vision this shift. VSS. Afebrile. On room air. Lungs clear throughout. NSR. No edema. Bowel sounds active. Last BM 03/03. Voids per urinal with assistance. SCDs in place and on Lovenox. Bedrest with bedside commode privileges. Antivert to be given prior to PT/OT working with patient. IV to left wrist SL with no complications. Regular diet. Follow up: NIHSS, activity, GIRP karl Neal
--- NOTE | 2017-03-09 17:04 | NUR ---
Significant Event: PT ALERT AND ORIENTED X3. PERRLA. L)SIDE REMAINS WEAKER THAN R)SIDE AND DULL SENSATION. STROKE SCALE 7. BEDREST; REPOSITIONS SELF IN BED. VITAL SIGNS STABLE; ON ROOM AIR. PRN ULTRAM AND TYLENOL GIVEN FOR R)SIDE HEADACHE/BEHIND EYES, WITH RELIEF. VOIDS PER URINAL. LAST BM ON 03/03/17; PRN MIRALAX ORDERED TODAY; DOSE GIVEN THIS AFTERNOON WITH NO RESULTS YET. PT IS PASSING FLATUS; GOOD APPETITE. RASH NOTED TO L)AXILLA; TID HYDROCORTISONE CREAM ORDERED. BILATERAL CALF PUMPS ON. IV TO L)WRIST SALINE LOCKED. NUMEROUS VISITORS HAVE BEEN AT BEDSIDE ALL SHIFT. Follow up: MONITOR HEADACHE; INCREASE ACTIVITY TOMORROW PER 'S ORDER; [facility] VS. [facility]?
--- NOTE | 2017-03-10 05:18 | NUR ---
Significant Event: Patient is alert and oriented x 3. Headache controlled this shift. PERRLA. C/O numbness/dull sensation to left side -feels pressure. NIHSS-7. Ataxia to left extremities. Left upper extremity effort against gravity, left leg drift. Moves extremities spontaneously and to command. Response time improved this shift. Pleasant and cooperative with cares. Keep lights down in room and no loud noises. Denies blurred or double vision this shift. VSS. Afebrile. On room air. Lungs clear throughout. NSR. No edema. Bowel sounds active. Last BM 03/03. Voids per urinal with assistance. SCDs in place and on Lovenox. Bedrest with bedside commode privileges--to mobilize today and may stand and walk if able. Antivert to be given prior to PT/OT working with patient. IV to left wrist SL with no complications. Regular diet. Bed bath given this shift. Follow up: NIHSS, activity, [facility] vs [facility], monitor neuro
--- NOTE | 2017-03-10 15:16 | NUR ---
Social visit with pt today. I told him [facility] will be here tomorrow after 1330 to see him and hoping to get him there by Friday if he is ready and md's as well. I did call up Jumana his and updated her to plan on being here around [phone]. I told her hopefully we can then get him going to rehab. I told her Rema said they are hoping beds in [place] on Friday if not he is on the list in [place]. I did fax updates to Rema. WIll continue to follow and assist.
--- NOTE | 2017-03-10 15:21 | NUR ---
Significant Event: Patient is A&O x3. Follows commands. L) side weaker than the R) and more so in his arm. Has altered sensation to the L) side and more so in his upper body. Pupils equal & brisk. NIHSS = 6. He is very unsteady when setting up and is unable to tell if he is falling over; but is much better than Friday. Did stand at bedside and sit in the chair for 45 minutes. VSS. Complains of L) ear/throat pain and may gargle with salt water per MD order. Also complained of pain behind his eyes once when setting. Gave Tramadol @ 0732 with relief noted. IV to L) wrist SL. No BM since 03/03. Patient requests Antivert prior to therapy in the morning and I gave that to him at 0703. No complaints of dizziness this shift. Voids per urinal. Cooperative with cares. Follow up: [facility] probable this week.
--- NOTE | 2017-03-11 02:34 | NUR ---
Significant Event: Patient is alert and oriented x 3. Minor headache this shift-Tylenol given with relief noted. PERRLA. C/O numbness/dull sensation to left side, left arm worse than left leg (significantly improving and thinks almost back to normal). NIHSS-6. Ataxia to left extremities (left leg significantly improving). Left upper extremity effort against gravity, left leg drift. Moves extremities spontaneously and to command. Response time improving. Initially patient said he was cranky but mood improved this shift and has been cooperative with cares. Very particular. Keep lights down in room and no loud noises. Denies blurred or double vision this shift. VSS. Afebrile. On room air. Lungs clear throughout. NSR. No edema. Bowel sounds active. Last BM 03/03. Did get up to BSC with 2PA. Passing gas but no BM. Voids per urinal with assistance. SCDs in place and on Lovenox. Denied any dizziness or headache when he got up to BSC. Antivert to be given prior to PT/OT working with patient (wants with 0700 meds). IV to left wrist SL with no complications. Regular diet. Follow up: NIHSS, activity, [facility] vs [facility]--possibly D/C Wed, monitor neuro, BM
--- NOTE | 2017-03-11 13:04 | NUR ---
Significant Event: A/O XX 3. FOLLOWS COMMANDS. LEFT SIDE REMAINS WEAKER, BUT IMPROVED PER PATIENT. DULL SENSATION TO LEFT ARM AND LEFT SIDE CHEEK. PUPILS 3MM, BRISK. LUNGS CLEAR ON ROOM AIR. IV IN LEFT WRIST, SALINE LOCKED. DENIED PAIN SO FAR, BUT DID HAVE ULTRAM THIS AM FOR ANTICIPATED HEADACHE. ALSO TOOK ANTIVERT THIS AM PRIOR TO GETTING UP WITH THERAPY. UP WITH 2 ASSIST, PIVOT. HAD NOT HAD A BM SINCE 03/03, DID HAVE MODERATE ONE ON COMMODE TODAY. IBETH TO BE HERE TO EVAL PATIENT. Follow up: IBETH MEI. NIHSS.
--- NOTE | 2017-03-11 14:59 | NUR ---
I met with pt, , 3 daughters along with Rema and Jumana with [facility]. Questions were answered. We also spoke with Dr Menon and he believes he needs to go by ambulance and will do a certification. I explained we can not guarantee it but [employer] are good to work with. We discussed the acute rehab, 3 hrs of therapy, insurance coverage, etc. Rema will know more tomorrow about a bed in [place] and if it needs to be that is fine to or if there is no beds then family is opend to [facility]. I did tell him that he needs to be considered stable for transfer to acute rehab by the md but per Dr Menon he is ready anytime. I did set up ambulance with [facility] for Fri or .
--- NOTE | 2017-03-12 05:13 | NUR ---
Significant Event: Patient is alert and oriented x 3. Started to get a headache at the end of the shift--Tylenol given. PERRLA. C/O numbness/dull sensation to left arm and cheek. NIHSS-6. Ataxia to left extremities (left leg better). Left upper extremity effort against gravity, left leg drift but has significantly improved. Moves extremities spontaneously and to command. Response time improving. Cooperative with cares this shift. Very particular. Keep lights down in room and no loud noises. Denies blurred or double vision this shift. VSS. Afebrile. On room air. Lungs clear throughout. NSR. No edema. Bowel sounds active. Last BM 03/11. Voids per urinal with assistance. SCDs in place and on Lovenox. Antivert to be given prior to PT/OT working with patient (wants with 0700 meds). IV to left wrist SL with no complications. Regular diet. Follow up: NIHSS, activity, GIRP vs [facility]--possibly D/C today to [facility] or tomorrow (ambulance tentatively lined up if patient accepted), monitor neuro
--- NOTE | 2017-03-12 11:55 | NUR ---
PATIENT IS AAOX3. HAS NUMBNESS AND TINGLING TO LEFT FACE/ARM/LEG. L) SIDE IS WEAK. TAKE TWO ASSIST TO PIVOT THIS PATIENT. NIHSS 5. CLEAR LUNG SOUNDS ON RA. ACTIVE BS. BM TODAY. USES URINAL. DOES HAVE RASH TO LEFT ARMPIT. BENGAY APPLIED TO SHOULDERS AND NECK. ABREVA FOR COLD SORE. ON LOVENOX. TYLENOL LAST AT 0858 AND ULTRAM LAST AT 0633. REPORT CALLED TO MARILIN AT [facility]
--- NOTE | 2017-03-12 13:15 | NUR ---
I got a call at 0930 and Rema at [facility] states [facility] has a bed and can accept today and insurance has approved. I did call Dr Menon and left him a vm. I then went and updated pt and his daughter was present that he could go today if ok with md and pt. Daughter and Jumana was on the phone with her states pt wants out so if we could go today, and pt is also wanting to go. I explained I have updated Dr Menon and will make sure but if it is today will tentatively plan around noon for ambulance transfer. Per Rema [facility] room [address] Worthington will be accepting. I updated Snageeta and she called Dr Snow and he is fine with pt going to [facility] for acute rehab. I then called Janina and explained I set up the transport time for [address] Menon aware and it should be fine. I did fax most of the orders and progress notes to [facility] [phone] and I also called Rema and told her we are planning on him leaving today. Dr Menon did see pt and orders done and stated pt ready for intensive rehab. I then left vm with Shaunna and Sangeeta RN did call report. WIll assist as needed.
== END 2017-03-12 13:28 | DRG 65 ==
LOC: GMED 16:32 → GICU 18:36 → GNTU 03-04 15:22
PROVIDERS: Family Medicine; ADMIT Internal Medicine
PROC: F00ZJWZ Instrumental Swallowing and Oral Function Assessment using Swallowing Equipment (ICD-10-PCS; principal; 2017-03-03)
PROC: B246ZZZ Ultrasonography of Right and Left Heart (ICD-10-PCS; principal; 2017-03-03)
DX: I63.9 Cerebral infarction, unspecified (principal); G81.94 Hemiplegia, unspecified affecting left nondominant side; I10 Essential (primary) hypertension; R29.810 Facial weakness; K21.9 Gastro-esophageal reflux disease without esophagitis; N40.0 Benign prostatic hyperplasia without lower urinary tract symptoms; Z82.3 Family history of stroke; H53.2 Diplopia; R29.706 NIHSS score 6; K59.00 Constipation, unspecified; R27.8 Other lack of coordination
CPT/HCPCS: C8929; G0480; J1650; J2270; J2405; J3360; J7030; Q9967

== ENCOUNTER → 2017-03-12 | Outpatient (CLI) | payer BC ==
[~2017-03-12] MED LIST changes: +CLARITIN10 MG PO; +CYCLOBENZAPRINE5 MG PO; +FLOMAX0.4 MG PO; +LACTINEX (FLORA1 TAB PO; +SUDAFED 12-HOU120 MG PO
== END | disposition disaster alternative care site (69) ==
LOC: GAMB 13:09
DX: I63.9 Cerebral infarction, unspecified (principal); H53.149 Visual discomfort, unspecified; N40.0 Benign prostatic hyperplasia without lower urinary tract symptoms; R53.1 Weakness; R51 Headache; R29.898 Other symptoms and signs involving the musculoskeletal system; R27.0 Ataxia, unspecified; Z79.82 Long term (current) use of aspirin; Z79.899 Other long term (current) drug therapy
CPT/HCPCS: A0425; A0428